=== PATIENT | female | born 1955 | race Caucasian/White ===

== ENCOUNTER 2023-07-29 08:46 | Outpatient (CLI) | payer MEDICARE, OTHER ==
[2023-07-29 12:22] LABS: BASOPHILS % (AUTO) 0.8 %; EOSINOPHILS # (AUTO) 0.1 10^3/uL (0.0-0.7); EOSINOPHILS % (AUTO) 2.7 %; HCT - HEMATOCRIT 39.5 % (37.0-47.0); HGB - HEMOGLOBIN 12.4 g/dL (12.0-16.0); LYMPHOCYTES % (AUTO) 37.9 %; MEAN CORPUSCULAR HEMOGLOBIN 30.7 pg (27.0-31.0); MEAN CORPUSCULAR HGB CONC 31.4 g/dL (32.0-36.0); MEAN CORPUSCULAR VOLUME 97.8 fL (81.0-99.0); MEAN PLATELET VOLUME 10.4 fL (7.9-10.8); MONOCYTES # (AUTO) 0.4 10^3/uL (0.0-1.0); MONOCYTES % (AUTO) 6.7 %; NEUTROPHILS # (AUTO) 2.7 10^3/uL (1.5-6.6); NEUTROPHILS % (AUTO) 51.5 %; PLT - PLATELET COUNT 300 10^3/uL (130-450); RED BLOOD COUNT 4.04 10^6/uL (4.20-5.40); RED CELL DISTRIBUTION WIDTH 12.8 % (12.0-15.0); WHITE BLOOD COUNT 5.2 x10^3/uL (4.8-10.8)
[2023-07-29 12:24] LABS: ESTIMATED AVERAGE GLUCOSE 111 mg/dL (70-100); HEMOGLOBIN A1c% 5.5 % (4.27-6.07)
[2023-07-29 12:39] LABS: ALBUMIN 4.6 g/dL (3.2-5.5); ALBUMIN/GLOBULIN RATIO 2.2 (1.0-2.2); ALKALINE PHOSPHATASE 76 IU/L (42-121); ALT ALANINE AMINOTRANSFERASE 15 IU/L (10-60); AST ASPARTATE AMINOTRANSFERASE 13 IU/L (10-42); BILIRUBIN,TOTAL 0.6 mg/dL (0.2-1.0); BUN - BLOOD UREA NITROGEN 15 mg/dL (6-20); CALCIUM 9.4 mg/dL (8.5-10.3); CARBON DIOXIDE - CO2 31 mmol/L (21-32); CHLORIDE 104 mmol/L (101-111); CHOL/HDL RATIO 4.4 (<4.4); CHOLESTEROL 218 mg/dL; CREATININE 0.8 mg/dL (0.6-1.3); GFR - MDRD 72 (>89); GLUCOSE 93 mg/dL (74-104); HDL CHOLESTEROL 50 mg/dL; LDL CHOLESTEROL,CALCULATED 131 mg/dL; LDL/HDL RATIO 2.6 (<4.4); POTASSIUM 4.4 mmol/L (3.5-4.5); SODIUM 140 mmol/L (135-145); TOTAL PROTEIN 6.7 g/dL (6.4-8.9); TRIGLYCERIDES 184 mg/dL (48-352); VLDL CHOLESTEROL 37 mg/dL
== END 2023-07-29 08:47 | disposition home or self-care (01) ==
LOC: LAB.N 08:46
PROVIDERS: ATTEND Family Medicine
DX: I10 Essential (primary) hypertension (principal); R73.03 Prediabetes; E78.5 Hyperlipidemia, unspecified
CPT/HCPCS: 36415; 80053; 80061; 83036; 83721; 85025

== ENCOUNTER 2023-09-28 10:53 | Emergency (ER) | payer MEDICARE, OTHER ==
[2023-09-28 11:14] VITALS: O2SAT 96
[2023-09-28 11:42] LABS: BASOPHILS % (AUTO) 0.4 %; EOSINOPHILS % (AUTO) 0.2 %; HCT - HEMATOCRIT 40.3 % (37.0-47.0); HGB - HEMOGLOBIN 13.4 g/dL (12.0-16.0); LYMPHOCYTES # (AUTO) 1.4 10^3/uL (1.5-3.5); LYMPHOCYTES % (AUTO) 30.1 %; MEAN CORPUSCULAR HGB CONC 33.3 g/dL (32.0-36.0); MEAN CORPUSCULAR VOLUME 93.3 fL (81.0-99.0); MEAN PLATELET VOLUME 9.1 fL (7.9-10.8); MONOCYTES # (AUTO) 0.3 10^3/uL (0.0-1.0); MONOCYTES % (AUTO) 5.3 %; NEUTROPHILS % (AUTO) 63.8 %; PLT - PLATELET COUNT 337 10^3/uL (130-450); RED BLOOD COUNT 4.32 10^6/uL (4.20-5.40); RED CELL DISTRIBUTION WIDTH 12.1 % (12.0-15.0); WHITE BLOOD COUNT 4.7 x10^3/uL (4.8-10.8)
[2023-09-28 11:55] LABS: ALBUMIN 4.7 g/dL (3.2-5.5); ALBUMIN/GLOBULIN RATIO 1.9 (1.0-2.2); BILIRUBIN,TOTAL 0.5 mg/dL (0.2-1.0); CALCIUM 9.5 mg/dL (8.5-10.3); CREATININE 0.8 mg/dL (0.6-1.3); POTASSIUM 3.6 mmol/L (3.5-4.5); TOTAL PROTEIN 7.2 g/dL (6.4-8.9)
[2023-09-28 12:02] LABS: TROPONIN I HIGH SENSITIVITY 2.8 ng/L (2.3-14.8)
--- NOTE | 2023-09-28 12:14 | ED Physician Documentation ---
PD HPI CHEST PAIN - Stated complaint Stated Complaint: SWEATS,DIZZINESS - Chief complaint Chief Complaint: Cardiac - History obtained from History obtained from: Patient - Additional information Additional information: 67-year-old woman with history of hypertension and hyperlipidemia has been sick for about 4 to 5 days with productive cough, body aches and chills. Last night developed mild chest heaviness without particular pain and some rapid palpitations especially when she is ambulatory today. That chest heaviness does not get worse with exertion. She is quite sweaty at times. PD PAST MEDICAL HISTORY - Past Medical History Past Medical History: Yes Cardiovascular: Hypertension, High cholesterol - Past Surgical History Past Surgical History: Yes General: Cholecystectomy Ortho: Knee replacement /[employer]: Tubal ligation - Allergies Allergies/Adverse Reactions: Allergies Allergy/AdvReac Type Severity Reaction Status Date / Time No Known Drug Allergies Allergy Verified 09/28/23 11:09 - Social History Does the pt smoke?: No Smoking Status: Never smoker PD ED PE NORMAL - Vitals Vital signs reviewed: Yes - General General: Alert and oriented X 3, No acute distress - HEENT HEENT: PERRL, EOMI - Neck Neck: Supple, no meningeal sign, No bony TTP - Cardiac Cardiac: RRR, No murmur - Respiratory Respiratory: No respiratory distress, Clear bilaterally - Abdomen Abdomen: Non tender - Back Back: No CVA TTP, No spinal TTP - Derm Derm: Normal color, Warm and dry - Neuro Neuro: Alert and oriented X 3, Normal speech Results - Vitals Vitals: Vital Signs - 24 hr 09/28/23 11:05 Temperature 36.6 C Heart Rate 96 Respiratory 18 Rate Blood Pressure 139/80 H O2 Saturation 96 - EKG (time done) 1111 EKG releavant findings:: EKG personally interpreted by author of this note. Relevant findings are: Rate: Rate (enter#) (68) Rhythm: NSR [place]: Normal QRS: Low voltage Ischemia: Non specific changes. No: ST elevation c/w ischemia, ST depression - Labs Labs: Laboratory Tests 09/28/23 09/28/23 11:36 11:36 WBC 4.7 L RBC 4.32 Hgb 13.4 Hct 40.3 MCV 93.3 MCH 31.0 MCHC 33.3 RDW 12.1 Plt Count 337 MPV 9.1 Neut # (Auto) 3.0 Lymph # (Auto) 1.4 L Wallace # (Auto) 0.3 Eos # (Auto) 0.0 Baso # (Auto) 0.0 Absolute Nucleated RBC 0.00 Nucleated RBC % 0.0 Sodium 137 Potassium 3.6 Chloride 100 L Carbon Dioxide 24 Anion Gap 13.0 BUN 12 Creatinine 0.8 Estimated GFR (MDRD) 72 L Glucose 143 H Calcium 9.5 Total Bilirubin 0.5 AST 19 ALT 22 Alkaline Phosphatase 80 Troponin I High Sens 2.8 Total Protein 7.2 Albumin 4.7 Globulin 2.5 Albumin/Globulin Ratio 1.9 Lipase 58 PD Medical Decision Making - ED course ED course: 67-year-old woman with viral flulike illness and has had greater than 12 hours of chest pressure and some rapid palpitations and sweatiness. Her EKG is nonischemic. Labs reviewed and notable for lymphopenia on CBC consistent with a viral syndrome, negative/normal troponin, and mild elevation in blood sugar. Chest x-ray without pneumonia or infiltrate. She was reassured by the normal results and given the timeframe single troponin should be predictive. Declined COVID/flu testing. Departure - Departure Disposition: 01 Home, Self Care Clinical Impression: Chest heaviness, Flu-like symptoms Condition: Good Record reviewed to determine appropriate education?: Yes Instructions: ED Chest Pain Atypical Unkn Cause Comments: Workup today was reassuring with normal heart testing and x-ray. Call your doctor to arrange a follow-up appointment, make the next available appointment. In the interim, return anytime if worse or if new symptoms develop. Forms: PCP List
[2023-09-28 12:33] VITALS: BP 138/74
--- NOTE | 2023-09-28 15:19 | XRAY Report ---
PROCEDURE: Chest 1V INDICATIONS: Chest Pain TECHNIQUE: One view of the chest was acquired. COMPARISON: None FINDINGS: Surgical changes and devices: None. Lungs and pleura: No pleural effusions or pneumothorax. Lungs are clear. Mediastinum: Mediastinal contours appear normal. Heart size is normal. Bones and chest wall: No suspicious bony lesions. Overlying soft tissues appear unremarkable. IMPRESSION: No acute cardiopulmonary findings Reviewed by: Toño Saba MD on 09/28/2023 2:17 PM AKST Approved by: Toño Sbaa MD on 09/28/2023 2:17 PM AKST Station ID: [id number]
== END 2023-09-28 12:30 | disposition home or self-care (01) ==
LOC: ED 10:53
DX: R07.9 Chest pain, unspecified (principal); R42 Dizziness and giddiness; R05.9 Cough, unspecified; I10 Essential (primary) hypertension
CPT/HCPCS: 36415; 80053; 83690; 84484; 85025; 93005; 99283; 99284

== ENCOUNTER 2023-10-08 10:49 | Outpatient (CLI) | payer MEDICARE, OTHER ==
--- NOTE | 2023-10-13 13:13 | Mammography Report ---
BILATERAL DIGITAL SCREENING MAMMOGRAM 3D/2D: 10/08/2023 CLINICAL: Routine screening. No prior exams were available for comparison. Both breasts are almost entirely fatty (category a/<25% glandular tissue). No significant masses, calcifications, or other findings are seen in either breast. IMPRESSION: NEGATIVE There is no mammographic evidence of malignancy. A 1 year screening mammogram is recommended. Based on the Tyrer Cuzick model (a risk assessment model) the patient's lifetime risk is 4.1% and her 10 year risk is 2.0%. According to the ACR, ACS, and NCCN guidelines, an annual breast MRI exam michael g with mammogram is recommended if the patient's lifetime risk is 20% or greater. This exam was interpreted at Station ID: [id number]. NOTE: For mammograms, a report in lay terms will be sent to the patient. Approximately 15% of breast malignancies will not be visualized mammographically. In the management of a palpable breast mass, a negative mammogram must not discourage biopsy of a clinically suspicious lesion. Electronically Signed By: Nova Moeller M.D., PH.D eb/penrad:10/11/2023 00:09:03 letter sent: No_Letter ACR BI-RADS Category 1: Negative 3341F PARENCHYMAL PATTERN: (F) - The breast(s) demonstrate(s) diffuse fatty replacement. BI-RADS CATEGORY: (1) - 1 Mammogram [id number] 1 year screening LATERALITY: (B)
== END 2023-10-08 10:50 | disposition home or self-care (01) ==
LOC: DI.N 10:49
DX: Z12.31 Encounter for screening mammogram for malignant neoplasm of breast (principal)

== ENCOUNTER 2023-12-11 10:04 | Outpatient (CLI) | payer MEDICARE, OTHER ==
--- NOTE | 2023-12-11 10:41 | Sleep Patient Instructions ---
Sleep Center Visit Summary - Patient Visit Information Reason for Visit: Initial consult for evaluation of sleep disordered breathing and other sleep issues. - Patient Instructions Instructions Attached: Sleep Study Additional Instructions: You will be completing a sleep study, either an in-lab polysomnography (PSG) or home sleep study (HST). You will follow-up in the sleep care office after the sleep study is completed to hear the results and talk about therapy, if needed. You will be called by our office staff to schedule this appointment, but you may contact us with any questions. - Clinic Information Contact: [facility] [address] [place] [address] [email or web address] T: [phone]
--- NOTE | 2023-12-11 10:46 | SLEEP CARE CONSULTATION ---
Information from patient questionnaire entered by Claudio Tran. I have reviewed and concur with the information entered by Claudio Tran. This document represents the service I personally performed and the decisions made by me, Batsheva Muñiz ARNP. History of Present Illness Service Date and Time: 12/11/2023 1004 Reason for Visit: New patient Chief Complaint: reports: Snoring ( YRS), Frequent awakenings at night (2YRS) Usual bedtime: 2200 Time it takes to fall asleep: 5-10MINS Snores at night: Yes Observed to quit breathing while asleep: No Sleeps alone due to snoring: No Number of times waking at night: 2-3 Reasons for waking at night: reports: Snoring (only if falling asleep when sitting up or just when falling asleep), Bathroom, Other (UNKNOWN, DRY THROAT). denies: Choking, Gasping for air Toss, Turn, or Twitch while sleeping: Yes Recalls having dreams: Yes Usually gets out of bed at: 0630 Feels refreshed in the morning: No Morning headache: No Sleepy or fatigued during the day: No Ever fallen asleep while driving: No Takes day naps: No Dreams during day naps: No Prior sleep studies: No Additional HPI information: I had the pleasure of seeing VALARIE ALY today regarding the possibility of her having a sleep disorder. Her current complaints are snoring and frequent night awakenings. Her has told her for a while that she snores. She was in the hospital for a broken leg and they suggested that she get checked for sleep apnea. She moved here from [place]. She feels like she wakes up a lot for either the bathroom or a dry mouth. She feels she tosses and turns a lot. Her t hinks she has restless legs because she moves a lot during sleep. She says she does not normally wake up feeling refreshed in the morning but feels she has normal energy during the day. - Parasomnia Symptoms Ever been unable to move upon waking from sleep: No Walks in sleep: No Talks in sleep: No Ever acted out dreams in sleep: No Ever felt weak in the knees when startled or emotional: No Bothered by creepy, crawly, restless sensations in legs: No Problems with memory or concentration: No Subjective Initial [place] Sleepiness Scale score: 2 (12/10/23) Past Medical History Past Medical History: reports: Hypertension, GERD, Other (UTERUS PROLAPSE, HYPERLIPIDEMIA) Social History The patient's occupation is a RE. Patient is and lives in [place]. Have you smoked in the past 12 months: No Cigarettes per day (20/pack): 20 Years of smokin Quit date: 1990 Smoking Pack Years: 5.0 Alcohol use: Yes Alcohol amount and frequency: 1-2 DRINKS occasionally Caffeine use: Yes Caffeine amount and frequency: 1 CUP COFFEE DAILY Family History Family history of sleep disordered breathing: Yes Family Hx Sleep Apnea: Mother: Snoring, Sibling: Snoring Allergies and Home Medications Known drug allergies: No Drug allergies reviewed: Yes Home medication list reviewed: Yes (as listed) Allergy and home medication list: Allergies No Known Drug Allergies Allergy (Verified 12/09/23 09:25) Home Medications Medication Instructions Recorded Confirmed Last Taken Type Atorvastatin [Lipitor] See Rx Instructions .ROUTE .COMPLEX 12/10/23 12/11/23 Unknown History Cholecalciferol (Vitamin D3) See Rx Instructions .ROUTE .COMPLEX 12/10/23 12/11/23 Unknown History [Vitamin D3] Omeprazole See Rx Instructions .ROUTE .COMPLEX 12/10/23 12/11/23 Unknown History Twynsta See Rx Instructions .ROUTE .COMPLEX 12/10/23 12/11/23 Unknown History Ubidecarenone [Co Q-10] See Rx Instructions .ROUTE .COMPLEX 12/10/23 12/11/23 Unknown History Estradiol 10 mg ORAL 12/11/23 Unknown History Review of Systems Weight gain over past 5 years: 10, in last year Cardiovascular: reports: high blood pressure, leg or foot swelling Gastrointestinal: reports: heartburn Urinary: reports: incontinence Neurological: denies: headaches, head trauma Psychiatric: denies: anxiety, depression Ear/Nose/Throat: reports: wisdom teeth removed. denies: injury to nose, tonsillectomy Endocrine: reports: increased urination Musculoskeletal: reports: joint pain Physical Exam Vital signs obtained and entered by: CLAUDIO Madrid MA Blood Pressure: 135/69 (LEFT ARM) Cuff size: regular Heart Rate: 74 O2 Saturation: 96 Height: 5 ft 6 in Weight: 211 lb Body Mass Index: 34.0 BMI Classification: Obese Neck circumference: 14.5 Nostrils: patent to airflow Mouth and throat: narrow oropharynx Soft palate: long Hard palate: normal Uvula: normal Uvula visualization: 25% Mallampati Class III Tongue: normal in size Tonsils: small Neck: normal w/o lymphadenopathy or thyromegaly Heart: regular rate and rhythm Lungs: clear bilaterally Impression and Plan 1. Suspected Obstructive Sleep Apnea-Hypopnea Syndrome, as suggested by a history of loud and irregular snoring, frequent awakening during the night and unrefreshed sleep. Narrow oropharynx and obesity are common predisposing factors for obstructive sleep apnea-hypopnea syndrome. I recommend proceeding to polysomnography to confirm the diagnosis and to assess severity. If the patient has significant sleep disordered breathing, a manual CPAP titration study will also be performed to find the optimal treatment pressure. I informed the patient of what the sleep studies involve and after some discussion, obtained agreement to proceed. The pathophysiology of obstructive sleep apnea-hypopnea syndrome was discussed with the patient and health risks of cardiovascular and cerebrovascular disease if not treated. Risks of drowsy driving discussed in detail and patient advised to avoid long distance driving and to well puller at the first sign of drowsiness. Patient agreed to plan. * Schedule polysomnography . * Avoid long distance driving or driving when feeling sleepy. * Avoid alcohol, sedative and muscle relaxant around bedtime. * Attempt to lose weight. * Review instructions provided by trained office staff on how to prepare for the sleep study. * Return for follow-up after sleep study completed. Counseling Topics: Weight loss health impact Follow up with Sleep Care in: other (after sleep study) Plan: PSG Visit Type: In Office Time Spent with Patient (minutes): 32 Provider Statement: I spent 100% of the Face to Face Visit with the patient with greater than 50% spent counseling the patient and coordination of care.
[2023-12-11 10:54] VITALS: BP 135/69; O2SAT 96
== END 2023-12-11 10:05 | disposition home or self-care (01) ==
LOC: SC 10:04
PROVIDERS: ATTEND Nurse Practitioner Family
DX: R06.83 Snoring (principal); G47.8 Other sleep disorders
CPT/HCPCS: 99203; G0463; 99212

== ENCOUNTER 2024-01-06 19:29 | Outpatient (CLI) | payer MEDICARE, OTHER | END 2024-01-06 19:30 | disposition home or self-care (01) | LOC: SC 19:29 | PROVIDERS: ATTEND Nurse Practitioner Family | DX: G47.33 Obstructive sleep apnea (adult) (pediatric) (principal); G47.61 Periodic limb movement disorder; E66.9 Obesity, unspecified; Z68.34 Body mass index [BMI] 34.0-34.9, adult; I10 Essential (primary) hypertension | CPT/HCPCS: 95810 ==

== ENCOUNTER 2024-04-06 10:22 | Outpatient (CLI) | payer MEDICARE, OTHER ==
--- NOTE | 2024-04-06 11:15 | Sleep Patient Instructions ---
Sleep Center Visit Summary - Patient Visit Information Reason for Visit: First compliance follow-up - Patient Instructions Additional Instructions: You were here for follow up of CPAP therapy. You will be continued on CPAP therapy with pressure at 8-12 cmH2O. Please let us know if the pressure change is uncomfortable and we can make further adjustments of the pressure. You should follow up with sleep care in 1-2 months. You may contact us sooner for any questions or concerns. - Clinic Information Contact: [facility] [address] [place] [address] [email or web address] T: [phone]
--- NOTE | 2024-04-06 11:21 | SLEEP CARE CONSULTATION ---
Information from patient questionnaire entered by Alesia Tran. I have reviewed and concur with the information entered by Alesia Tran. This document represents the service I personally performed and the decisions made by , Batsheva Muñiz ARNP. History of Present Illness Service Date and Time: 04/06/2024 1022 Previous diagnosis: Mild, Obstructive Sleep Apnea-Hypopnea Syndrome AHI: 5.8 (01/06/24) Reason for follow up: first compliance Equipment type: CPAP (RESMED Airsense 11 S/U 02/06/24) Equipment obtained from: Other ([facility]; getting supplies) Mask style: Full face Mask brand: [employer] (Tr Full) Backup mask available: No Prior sleep studies: No Type of Sleep Study: Polysomnography (COMPLETED 01/06/24) HPI additional information: VALARIE ALY was diagnosed to have mild, AHI 5.8, obstructive sleep apnea- hypopnea syndrome and returned today for CPAP therapy first compliance follow- up. Sleep Study - Results Type of Sleep Study: Polysomnography (COMPLETED 01/06/24) Prior sleep studies: No CPAP Compliance Data - Data Reviewed with Patient Average duration of nightly device use: 7 HRS 56 MINS Compliance rate %: 90 (02/06/24-03/06/24; 100% in last 30 days) Current pressure setting (cmH2O): 4-15 (median 7.5, avg 11.2, max 13) Average residual AHI: 5.1 Central apnea: 1.2 Obstructive apnea: 3.2 Hypopnea: 0.4 Average large leak: 0.9 L/min Compliance data discussion: AHI 2.2 in last 30 days with average pressure used 10.4 cmH2O with maximum 12 cmH2O. Subjective Patient concerns: reports: mask discomfort (just needing adjustments), nasal congestion (occasional), dry mouth, nose, throat. denies: aerophagia, air blowing in eyes, mask leak noise, condensation in mask/hose, epistaxis Observed to snore while using device: No Current pressure setting perceived as: comfortable On therapy, patient: reports: sleeping better, awakening more refreshed, being more awake and alert during the day, more rested overall. denies: drowsiness while driving Initial [place] Sleepiness Scale score: 2 (12/10/23) Current [place] Sleepiness Scale score: 2 (04/06/24) Allergies and Home Medications Known drug allergies: No Drug allergies reviewed: Yes Home medication list reviewed: Yes (no changes) Allergy and home medication list: Allergies No Known Drug Allergies Allergy (Verified 04/06/24 10:24) Review of Systems Review of systems same as previous: Yes (NO CHANGE) Physical Exam Vital signs obtained and entered by: ALESIA Madrid MA Blood Pressure: 137/75 (LEFT ARM) Cuff size: regular Heart Rate: 63 O2 Saturation: 98 Height: 5 ft 6 in Weight: 213 lb 3.2 oz Body Mass Index: 34.4 BMI Classification: Obese Impression and Plan 1. Obstructive Sleep Apnea-Hypopnea Syndrome, mild, with good treatment compliance and good apnea control. On CPAP therapy, the patient has better sleep quality and is more rested overall. She has significant improvement of her sleep apnea and is comfortable with current CPAP therapy. The patients pressure will be changed to autoCPAP 8-12 cmH20 to reflect pressure being used. Patient advised to contact me if pressure change is uncomfortable so that it can be adjusted. Goals for apnea control discussed. She has had a little bit of dry mouth and nasal congestion. She thinks she might be oral venting. I discussed with her using a chinstrap. She voiced understanding. She is a side sleeper and I discussed with her using a CPAP pillow to reduce dislodging of the mask. She voiced understanding of our discussion. Patient's apnea severity and rationale for treatment to reduce apnea, improve sleep quality and reduce cardiovascular and cerebrovascular events was reviewed. I also reviewed the benefit of consistent device use of CPAP for gastric reflux. 2. Obesity, unspecified. Currently patients BMI is 34.4. Obesity increases the risk of apnea, CPAP pressure requirements and overall health risks especially cardiovascular and diabetes. Thus patient is advised to lose weight. * Change auto CPAP pressure to 8-12 cmH2O * Notify me if snoring with mask or feeling that the pressure is too much or too little * Attempt to lose weight * Call this office if any problems using CPAP * Return for follow up in 1-2 months, or sooner if concerns arise Adjust device pressure to (cmH2O): 8-12 Counseling Topics: Spare mask, Weight loss health impact Follow up with Sleep Care in: 1-2 months Visit Type: In Office Time Spent with Patient (minutes): 24 Provider Statement: I spent 100% of the Face to Face Visit with the patient with greater than 50% spent counseling the patient and coordination of care.
[2024-04-06 11:28] VITALS: BP 137/75; O2SAT 98
== END 2024-04-06 10:23 | disposition home or self-care (01) ==
LOC: SC 10:22
PROVIDERS: ATTEND Nurse Practitioner Family
DX: G47.33 Obstructive sleep apnea (adult) (pediatric) (principal); E66.9 Obesity, unspecified; Z68.34 Body mass index [BMI] 34.0-34.9, adult
CPT/HCPCS: 99213; G0463; 99212

== ENCOUNTER 2024-05-07 11:27 | Outpatient (CLI) | payer MEDICARE, OTHER ==
--- NOTE | 2024-05-07 11:53 | Sleep Patient Instructions ---
Sleep Center Visit Summary - Patient Visit Information Reason for Visit: 6-week follow-up for PAP therapy - Patient Instructions Additional Instructions: You were here for follow up of CPAP therapy. You will be continued on CPAP therapy with pressure at 8-12 cmH2O. You should follow up with sleep care in 3 months. You may contact us sooner for any questions or concerns. - Clinic Information Contact: [facility] [address] [place] [id number] [email or web address] T: [phone]
--- NOTE | 2024-05-07 11:58 | SLEEP CARE CONSULTATION ---
Information from patient questionnaire entered by Esperanza Pinedo. I have reviewed and concur with the information entered by Esperanza Pinedo. This document represents the service I personally performed and the decisions made by , Batsheva Muñiz ARNP. History of Present Illness Service Date and Time: 05/07/20241126 Previous diagnosis: Mild, Obstructive Sleep Apnea-Hypopnea Syndrome AHI: 5.8 (01/06/24) Reason for follow up: other (6-Week F/U - Pressure change) Equipment type: CPAP (RESMED Airsense 11 S/U 02/06/24) Equipment obtained from: Other ([facility]; getting supplies) Mask style: Full face Mask brand: [employer] (Tr Full) Backup mask available: No Last cushion change: 3-4 weeks Prior sleep studies: No Type of Sleep Study: Polysomnography ([facility] 01/06/24) HPI additional information: VALARIE ALY was diagnosed to have mild, AHI 5.8, obstructive sleep apnea- hypopnea syndrome and returned today for CPAP therapy six week follow-up. Sleep Study - Results Type of Sleep Study: Polysomnography (COMPLETED 01/06/24) Prior sleep studies: No CPAP Compliance Data - Data Reviewed with Patient Average duration of nightly device use: 7 h 41 min Compliance rate %: 93 ( days used) Current pressure setting (cmH2O): 8-12 Average residual AHI: 1.9 Central apnea: 0.6 Obstructive apnea: 1.1 Hypopnea: 0.1 Average large leak: 4.8 Subjective Missed days of use due to: reports: travel Patient concerns: reports: mask discomfort. denies: aerophagia, air blowing in eyes, mask leak noise, condensation in mask/hose, nasal congestion, dry mouth, nose, throat, epistaxis Observed to snore while using device: No Current pressure setting perceived as: comfortable On therapy, patient: reports: sleeping better, awakening more refreshed, being more awake and alert during the day, more rested overall. denies: drowsiness while driving Initial [place] Sleepiness Scale score: 2 (12/10/23) Current [place] Sleepiness Scale score: 1 (05/07/24) Allergies and Home Medications Known drug allergies: No Drug allergies reviewed: Yes Home medication list reviewed: Yes (no changes) Allergy and home medication list: Allergies No Known Drug Allergies Allergy Review of Systems Review of systems same as previous: Yes (no changes) Physical Exam Vital signs obtained and entered by: Batsheva Sharma NP Blood Pressure: 122/78 Cuff size: long (right arm) Heart Rate: 67 O2 Saturation: 96 Height: 5 ft 6 in Weight: 211 lb 12.8 oz Body Mass Index: 34.2 BMI Classification: Obese Impression and Plan 1. Obstructive Sleep Apnea-Hypopnea Syndrome, mild, with good treatment compliance and good apnea control. On CPAP therapy, the patient has better sleep quality and is more rested overall. She has significant improvement of her sleep apnea and is comfortable with using her CPAP. She continues to use a fullface mask, Tr Full. Patient's apnea severity and rationale for treatment to reduce apnea, improve sleep quality and reduce cardiovascular and cerebrovascular events was reviewed. I also reviewed the benefit of consistent device use of CPAP for gastric reflux. 2. Obesity, unspecified. Currently patients BMI is 34.2. Obesity increases the risk of apnea, CPAP pressure requirements and overall health risks especially cardiovascular and diabetes. Thus patient is advised to lose weight. * Continue auto CPAP pressure at 8-12 cmH2O * Notify me if snoring with mask or feeling that the pressure is too much or too little * Attempt to lose weight * Call this office if any problems using CPAP * Return for follow up in 3 months, or sooner if concerns arise Counseling Topics: Spare mask, Weight loss health impact Follow up with Sleep Care in: 3 months Visit Type: In Office Time Spent with Patient (minutes): 16 Provider Statement: I spent 100% of the Face to Face Visit with the patient with greater than 50% spent counseling the patient and coordination of care.
[2024-05-07 12:05] VITALS: BP 122/78; O2SAT 96
== END 2024-05-07 11:28 | disposition home or self-care (01) ==
LOC: SC 11:27
PROVIDERS: ATTEND Nurse Practitioner Family
DX: G47.33 Obstructive sleep apnea (adult) (pediatric) (principal); E66.9 Obesity, unspecified; Z68.34 Body mass index [BMI] 34.0-34.9, adult
CPT/HCPCS: 99212; G0463